=== PATIENT | female | born 1995 | race Caucasian/White ===

== ENCOUNTER 2025-05-09 15:33 | Emergency (ER) | payer MEDICAID, SELFPAY ==
[2025-05-09 15:43] VITALS: BP 144/98; PULSE 107; RESP 20; TEMP 36.6; O2SAT 98
--- NOTE | 2025-05-09 15:47 | XR_ITS ---
Examination: Pelvic ultrasound, transabdominal, complete Technique: Transabdominal ultrasound of the pelvis performed using grayscale imaging Date and time of exam: May 09, 2025, 1641 hrs. Indications: Severe pelvic pain today, CT examination today bowel loop versus anterior left pelvic mass Findings: Uterus 11.3 cm endometrial stripe 1.2 cm No bladder mass or intrauterine gestation. Right ovary 3.6 cm arterial flow. Left ovary 3.7 cm arterial flow Solid mass adjacent to the left ovary 2.5 x 1.8 x 2.7 cm Also left ovarian cyst 2.8 x 1.6 x 2.5 cm Impression: Solid left adnexal mass is confirmed, 2.5 x 1.8 x 2.7 cm, differential would include ovarian tumor. Recommend elective MRI pelvis follow-up pre and postcontrast
--- NOTE | 2025-05-09 15:47 | XR_ITS ---
Examination: CT abdomen and pelvis without contrast. Coronal 3-D reconstructions. Sagittal 2-D reconstructions. Date and time of exam:May 09, 2025, 1557 hrs. Indications: Lower abdominal pain and nausea beginning today. Comparison: October 20, 2013. CTDI: vol (mGy): 13.8. DLP: (mGycm): 809. Technique: Axial images of the abdomen have been obtained, 3 mm slice thickness Intravenous contrast material has not been administered. Low dose protocols were performed. One or more of the following dose reduction techniques were used; automated exposure control, adjustment of the mA and/or KV according to patient size, use of iterative reconstruction technique. Findings: Mild enlargement cardiac contour with small pericardial effusion. Fatty liver. Contracted gallbladder. No pancreatic mass No renal or ureteral calculi, no hydronephrosis Aorta normal size No pericecal inflammatory change Anteverted uterus. Bowel loop versus anterior left pelvic mass, 34 mm on this noncontrast study, axial image 180 Urinary bladder intact The osseous structures are intact Impression: Negative for pancreatitis No renal or ureteral calculi. No CT findings of appendicitis or bowel obstruction. Recommend pelvic sonography to exclude left adnexal pelvic mass
--- NOTE | 2025-05-09 15:48 | PD.EDRME ---
Rapid Medical Screening Exam RME Arrival date/time: 05/09/25 15:33 29-year-old female presents to the emergency department today for complaints of pelvic pain and abdominal pain Chief Complaint: Abdominal Pain Vital signs: Vital Signs Temperature 98 F 05/09/25 15:43 Pulse Rate 107 H 05/09/25 15:43 Respiratory Rate 20 05/09/25 15:43 Blood Pressure 144/98 H 05/09/25 15:43 Pulse Oximetry (%) 98 05/09/25 15:43 Oxygen Delivery Method Room Air 05/09/25 15:43
[2025-05-09] MEDS: KETOROLAC INJ 30 MG/ML VIAL IM (15:53)
[2025-05-09 16:15] LABS: Basophils # (Auto) 0.0 Thou/mm3 (0.0-0.2); Basophils % (Auto) 0 % (0-2.5); Eosinophils # (Auto) 0.3 Thou/mm3 (0.0-0.5); Eosinophils % (Auto) 2 % (0-10); Hematocrit 38.4 % (36.0-46.0); Hemoglobin 12.4 g/dL (12.0-16.0); Immature Granulocytes Auto 0.03 Thou/mm3 (0.00-0.00); Lymphocytes # (Auto) 3.1 Thou/mm3 (1.0-4.8); Lymphocytes % (Auto) 24 % (10-50); Mean Corpuscular HGB Conc 32.3 g/dl (31.0-37.0); Mean Corpuscular Hemoglobin 24.9 pg (25.0-35.0); Mean Corpuscular Volume 77 fL (80-100); Monocytes # (Auto) 0.8 Thou/mm3 (0.0-0.8); Monocytes % (Auto) 7 % (0-12); Neutrophils # (Auto) 8.6 Thou/mm3 (1.8-7.7); Neutrophils % (Auto) 67 % (37-80); Nucleated Red Blood Cell # 0.00 Thou/mm3 (0.00-0.00); Nucleated Red Blood Cell % 0 /100 WBC (0); Platelet Count 368 Thou/mm3 (140-440); RDW Standard Deviation 45.0 fL (36.4-46.3); Red Blood Count 4.97 Miln/mm3 (4.00-5.20); White Blood Count 12.8 Thou/mm3 (3.6-11.0)
[2025-05-09 16:51] LABS: Alanine Aminotransferase 10 U/L (10-49); Albumin, Serum 4.7 gm/dL (3.5-5.0); Albumin/Globulin Ratio 1.5 (1.2-2.2); Alkaline Phosphatase 102 U/L (46-116); Anion Gap 10 (7-16); Aspartate Amino Transferase 16 U/L (0-34); BUN/Creatinine Ratio 25 Ratio (12-20); Bilirubin,Total 0.4 mg/dL (0.3-1.2); Blood Urea Nitrogen 20 mg/dL (9-23); Calcium 10.1 mg/dL (8.3-10.6); Calcium (Corrected) 10.1 mg/dL (8.5-10.1); Carbon Dioxide 25.1 mMol/L (20.0-31.0); Chloride 106 mMol/L (98-107); Creatinine (Component) 0.8 mg/dL (0.6-1.3); Globulin 3.1 gm/dL (2.3-3.5); Glucose 112 mg/dL (74-106); Lipase 22 U/L (12-53); Osmolality,Calculated 284 (275-295); Potassium 3.4 mMol/L (3.4-5.1); Sodium 141 mMol/L (136-145); Total Protein 7.8 gm/dL (5.7-8.2); eGFR > 60 See Note
[2025-05-09 17:40] LABS: Collection Type, Urine Clean Catch
[2025-05-09 18:06] LABS: Bacteria,Urine Rare; Bilirubin,Urine Negative (Negative); Blood,Urine 1+ (Negative); Clarity,Urine Turbid (Clear/Hazy); Color,Urine Yellow (Lt Yel-Yel); Glucose, Urine Negative (Negative); Ketones,Urine Negative (Negative); Leukocyte Esterase,Urine Positive (Negative); Nitrite,Urine Positive (Negative); PH,Urine 6.0 (5.0-7.0); Protein,Urine Trace (Neg - Trace); RBC,Urine 22 /hpf (0-3); Specific Gravity,Urine 1.027 (1.001-1.035); Squamous Epithelial Cell,Urine 1 /hpf (0-5); Urobilinogen,Urine Negative mg/dL (0.0-1.0); WBC,Urine 328 /hpf (0-5)
[2025-05-09 18:07] LABS: Culture Indicated,Urine Yes
--- NOTE | 2025-05-09 18:30 | PD.EDABDPN ---
ED Abdominal Pain RME/HPI General Chief Complaint: Abdominal Pain Stated complaint: SEVERE ABD/LOWER BACK PAIN X 2 DAYS Time seen by provider: 05/09/25 18:50 Arrival date/time: 05/09/25 15:33 RME / HPI RME / HPI narrative: 05/09/25 15:33 29-year-old female presents to the emergency department today for complaints of pelvic pain and abdominal pain Dr. Man?s Main ED Evaluation: 29yo female coming in with gradually increasing LLQ pain x 3 days described as tightness/cramping in nature. Also notes urinary frequency, but no urgency, dysuria, or hematuria. No fever or chills. Pain increases with valsalva. PMH includes childhood asthma. PSH includes tubal litigation and . Related Data Previous Rx's ?Medication ?Instructions ?Recorded cefdinir 300 mg capsule 300 mg PO BID 7 days #14 caps 05/09/25 naproxen 250 mg tablet 250 mg PO BID PRN pain #10 tabs 05/09/25 oxycodone-acetaminophen 5 mg-325 1 tab PO Q8H PRN pain #21 tabs 05/09/25 mg tablet (Percocet) promethazine 12.5 mg tablet 12.5 mg PO TID PRN nausea and 05/09/25 vomiting #14 tabs Allergies Allergy/AdvReac Type Severity Reaction Status Date / Time No Known Allergies Allergy Verified 05/09/25 15:36 Review of Systems Review of Systems Systems Reviewed: All systems reviewed, normal except as documented Past Medical History Past Medical History NEUROLOGIC: Positive Seizures (in e.r. this admission); Negative Neurological Disorders CARDIAC: Negative Cardiac Disorders, Myocardial Infarction, Cardiac Arrhythmia, Atrial Fibrillation, Angina, Heart Murmur, Coronary Artery Disease, Atherosclerotic Heart Disease, Peripheral Vascular Disease, Hypercholesterolemia, Aneurysm, Congestive Heart Failure, Congenital Heart Disease, Valvular Heart Disease, Rheumatic Fever, Cardiomyopathy, Edema, Pericarditis, Cellulitis, Deep Vein Thrombosis, Hypertension, Hypotension or Varicose Veins RESPIRATORY: Positive Asthma (INH LAST USED 6 MONTHS AGO); Negative Chronic Obstructive Pulmonary Disease (COPD) GASTROINTESTINAL: Negative Gastrointestinal Disorders, Hepatitis or Colorectal Cancer GENITOURINARY: Negative Genitourinary Disorders, Renal Disease or Prostate Cancer REPRODUCTIVE: Positive Previous Pregnancies; Negative Breast Cancer, Endometriosis, Genital Herpes, Gonorrhea, Pelvic Inflammatory Disease, Syphilis, Testicular Cancer or Uterine Prolapse MUSCULOSKELETAL: Positive Musculoskeletal Disorders (PSORIOSIS); Negative Bone Cancer or Carpal Tunnel Syndrome ENT: Negative Cataracts ENDOCRINE: Negative Endocrine Disorders, Diabetes Mellitus Type 1 or Diabetes Mellitus Type 2 HEMATOLOGIC: Negative Blood Disorders, Anemia, Leukemia, Hemophilia, Thalassemia, Sickle Cell Disease or Clotting Problems OTHER HISTORY: Positive Hospitalization (CHILDBIRTH, DUE TO COVID RELATED SYMPTOMS 2019); Negative Autoimmune Disease, Down Syndrome, Developmental Delay, Shingles, Falls, Blood Transfusions, Anesthesia Reactions, Organ Transplant, Chemotherapy, Radiation Therapy, Hyperbaric Therapy, MRSA, VRSA, Vancomycin-Resistant Enterococci, Human Immunodeficiency Virus (HIV), Chicken Pox, Measles, Mumps, Rubella (Czech Measles), Pertussis, Clostridium Difficile, Cancer, Breast Cancer, Cervical Cancer, Colorectal Cancer, Lung Cancer, Ovarian Cancer, Prostate Cancer or Testicular Cancer Family History FAMILY HISTORY: Positive Family Respiratory Disorders (MATERNAL GF-ASTHMA.), Family Cardiac Disorders (MATERNAL GRANDMOTHER-CHF.), Family Gastrointestinal Problems (MATERNAL GF-ULCERS.), Family Cancer (MATERNAL AUNT-COLON CA.) and Family Surgery (SISTER-APPENDECTOMY, MOTHER-C/S,); Negative Family Psychiatric Problems or Family Anesthesia Reaction Surgical History SURGICAL: Positive Ear Surgery, Tonsillectomy and Section (3); Negative Cardiac Surgery, Open Heart Surgery, Coronary Artery Bypass Graft, Valve Replacement, Vascular Surgery, Coronary Stent, Cardiac Catheterization, Pacemaker, Angiogram, Auto Implanted Cardiovert Defib, Carotid Endarterectomy, Endocrine Surgery, Thyroidectomy, Tympanostomy Tube, Eye Surgery, Nose Surgery, Oral Surgery, Adenoidectomy, Cochlear Implant, Corneal Transplant, Throat Surgery, Abdominal Surgery, Tracheostomy, Gastric Bypass Surgery, Gastrostomy, Bowel Surgery, Nephrectomy, Transurethral Resection, Joint Replacement, Amputation, Open Reduction Internal Fixation, Arthroscopy, Neurologic Surgery, Brain Shunt, Mastectomy, Lumpectomy, Hysterectomy, Tubal Ligation or Organ Transplant Social History SMOKING STATUS: Current every day smoker SECOND HAND EXPOSURE: No ED Exam Narrative Physical exam: GENERAL APPEARANCE: alert and oriented x 4, well-developed, well-nourished, occasionally tearful secondary to LLQ pain, obese, no acute distress VITALS: All vitals were reviewed and the pulse ox is 98% on room air, which is normal according to my interpretation. HEENT: Normocephalic, atraumatic; pupils equal, round, reactive to light; EOMI; mucous membranes pink, moist; oropharynx clear NECK: Supple LUNGS: CTABL; no wheezes, no rales, no rhonchi HEART: Regular rate, regular rhythm; normal S1, S2; no murmurs ABDOMEN: non distended; soft, localized LLQ tenderness, equivocal peritoneal findings BACK: no CVA tenderness EXTREMITIES: atraumatic; no edema NEUROLOGIC: awake; alert and oriented x4; cranial nerves II-XII grossly intact; no focal sensory or motor deficits PSYCHIATRIC: appropriate mood and affect SKIN: warm, dry, normal color; no rashes Course Quality Measures none Orders Category Date Time Status CT abdomen pelvis wo con Stat Exams 05/09/25 15:47 Completed US pelvic complete Stat Exams 05/09/25 15:47 Completed CBC Stat Lab 05/09/25 16:08 Completed Comprehensive Metabolic Panel Stat Lab 05/09/25 16:08 Completed HCG Qualitative,Urine Stat Lab 05/09/25 17:00 Completed Lipase Stat Lab 05/09/25 16:08 Completed UA, C/S IF [Urinalysis, C/S if Indicated] Stat Lab 05/09/25 17:00 Completed Urine Culture Stat Lab 05/09/25 17:00 Received HYDROcodone*/APAP 5/325 [Star 5/325] Med 05/09/25 18:54 Discontinued 1 tab PO X1 ONE Ibuprofen Tab [Motrin Tab] Med 05/09/25 18:54 Discontinued 600 mg PO X1 ONE Ketorolac Inj [Toradol Inj] Med 05/09/25 15:47 Discontinued 30 mg IM X1 ONE cefTRIAXone [Rocephin] Med 05/09/25 18:58 Discontinued 1,000 mg IM X1 ONE Vital Signs Vital signs: Vital Signs Temperature 98 F 05/09/25 15:43 Pulse Rate 107 H 05/09/25 15:43 Respiratory Rate 20 05/09/25 15:43 Blood Pressure 144/98 H 05/09/25 15:43 Pulse Oximetry (%) 98 05/09/25 15:43 Oxygen Delivery Method Room Air 05/09/25 15:43 Abdominal Pain MDM MDM Narrative MDM Narrative:: Scribe Attestation: 05/09/25 - Isa Ty am scribing for and in the presence of Dr. Man. 29yo female coming in with gradually increasing LLQ pain x 3 days described as tightness/cramping in nature. Also notes urinary frequency, but no urgency, dysuria, or hematuria. Please see PE findings. Lab markers demonstrate marginally elevated WBC count, no bandemia. Chemistries unremarkable. UA demonstrates UTI. Patient received Rocephin 1g IM and oral narcotic analgesics with [id number] relied. CT and US performed, which demonstrated left ovarian cystic structure with adjacent mass, no gross free fluid in the pelvis. After extended period of observation, patient is considered stable for discharge. Recommended close follow-up with her PMD for referral to gynecology as an outpatient. Patient data External records reviewed:: [facility] previous records (Per chart review, patient was admitted here on 09/02/20 for abdominal pain.) Clinical information provided by:: patient Social determinants that could affect healthcare access:: none Patient has the following chronic illnesses:: asthma How is presenting disease/condition affected by chronic disease/condition?: uneffected by Evaluation data The following diagnostics were reviewed and interpreted by me:: lab results and radiology exam(s) Lab and/or radiology exams considered but not ordered:: none Interpretation Summary: [facility] Report Signed Patient: EFRAIN ABKER Record#: [id number] Birthdate: 1995 Age/Sex: 29 / F Location: [facility] Attending Dr: Ordering Physician: Catrina CLAYTON)Mike NP Date of Service: 05/09/25 Procedure(s): US pelvic complete Accession Number(s): [id number] cc: Catrina CLAYTON)Mike NP; Derek Morris MD; Ewa Aparicio PA-C~ Examination: Pelvic ultrasound, transabdominal, complete Technique: Transabdominal ultrasound of the pelvis performed using grayscale imaging Date and time of exam: May 09, 2025, 1641 hrs. Indications: Severe pelvic pain today, CT examination today bowel loop versus anterior left pelvic mass Findings: Uterus 11.3 cm endometrial stripe 1.2 cm No bladder mass or intrauterine gestation. Right ovary 3.6 cm arterial flow. Left ovary 3.7 cm arterial flow Solid mass adjacent to the left ovary 2.5 x 1.8 x 2.7 cm Also left ovarian cyst 2.8 x 1.6 x 2.5 cm Impression: Solid left adnexal mass is confirmed, 2.5 x 1.8 x 2.7 cm, differential would include ovarian tumor. Recommend elective MRI pelvis follow-up pre and postcontrast Dictated By: Derek Morris MD Signed By: <Electronically signed by Derek Morris MD in [place]> 05/09/25 1721 [facility] Signed Patient: EFRAIN BAKER Record#: [id number] Birthdate: 1995 Age/Sex: 29 / F Location: [facility] Attending Dr: Ordering Physician: Catrina CLAYTON),Mike IQBAL Date of Service: 05/09/25 Procedure(s): CT abdomen pelvis wo con Accession Number(s): [id number] cc: Catrina CLAYTON),Mike IQBAL; Derek Morris MD~ Examination: CT abdomen and pelvis without contrast. Coronal 3-D reconstructions. Sagittal 2-D reconstructions. Date and time of exam:May 09, 2025, 1557 hrs. Indications: Lower abdominal pain and nausea beginning today. Comparison: October 20, 2013. CTDI: vol (mGy): 13.8. DLP: (mGycm): 809. Technique: Axial images of the abdomen have been obtained, 3 mm slice thickness Intravenous contrast material has not been administered. Low dose protocols were performed. One or more of the following dose reduction techniques were used; automated exposure control, adjustment of the mA and/or KV according to patient size, use of iterative reconstruction technique. Findings: Mild enlargement cardiac contour with small pericardial effusion. Fatty liver. Contracted gallbladder. No pancreatic mass No renal or ureteral calculi, no hydronephrosis Aorta normal size No pericecal inflammatory change Anteverted uterus. Bowel loop versus anterior left pelvic mass, 34 mm on this noncontrast study, axial image 180 Urinary bladder intact The osseous structures are intact Impression: Negative for pancreatitis No renal or ureteral calculi. No CT findings of appendicitis or bowel obstruction. Recommend pelvic sonography to exclude left adnexal pelvic mass Dictated By: Derek Morris MD Signed By: <Electronically signed by Derek Morris MD in OV> 05/09/25 1629 Medications / Prescriptions Medications or Prescriptions considered but not ordered:: none Medication administrations:: Medication Administration History Discontinued Medications Hydrocodone Bitart/Acetaminophen (Hydrocodone/Apap 5/325 Tablet) 1 tab PO X1 ONE Stop: 05/09/25 18:55 Last Admin: 05/09/25 19:24 Dose: 1 tab Documented By: OA Ceftriaxone Sodium (Ceftriaxone Sod Inj 1,000 Mg Vial) 1,000 mg IM X1 ONE Stop: 05/09/25 18:59 Last Admin: 05/09/25 19:26 Dose: 1,000 mg Documented By: OA Ibuprofen (Ibuprofen Tab 600 Mg Tablet) 600 mg PO X1 ONE Stop: 05/09/25 18:55 Last Admin: 05/09/25 19:24 Dose: 600 mg Documented By: OA Ketorolac Tromethamine (Ketorolac Inj 30 Mg/Ml Vial) 30 mg IM X1 ONE Stop: 05/09/25 15:48 Last Admin: 05/09/25 15:53 Dose: 30 mg Documented By: OA see above Consultations Consultation(s) initiated? (list below): No Diagnosis Differential diagnosis abdominal pain: constipation and other (ovarian cyst, ovarian torsion, pelvis mass) Most likely diagnosis given after review of the tests above:: see clinical impression below Admission Indicated Admission indicated?: not indicated Admission Request Was there a request for admission?: No Disposition Plan Disposition Plan: Discharge Discharge Attestation Discharge Attestation: The patient and all family members were given an opportunity to ask questions and understood the discharge instructions. Discharge instructions specifically effects, indications for sooner follow up or return to the emergency department, and the expected course of current diagnosis. Patient condition: Stable Discharge Plan Plan Patient Disposition: HOME (Self Care) Discharge Disposition comment: Stablestable Prescriptions/Referrals Prescriptions/Med Rec: New cefdinir 300 mg capsule 300 mg PO BID 7 Days Qty: 14 0RF oxycodone-acetaminophen [Percocet] 5-325 mg tablet 1 tab PO Q8H MDD 3 tab PRN (Reason: pain) Qty: 21 0RF promethazine 12.5 mg tablet 12.5 mg PO TID PRN (Reason: nausea and vomiting) Qty: 14 0RF naproxen 250 mg tablet 250 mg PO BID PRN (Reason: pain) Qty: 10 0RF Referrals: Ewa Aparicio PA-C [Primary Care Provider] - In 1 week Problem List Clinical Impression: UTI (urinary tract infection), Ovarian cyst, Pelvic mass Patient/Caregiver Discharge Instructions Discharge Activity: activity as tolerated Diet Instructions: Tolerated Education Materials: ED Ovarian Cyst, ED CYSTITIS Female Adult Additional Instructions: Medication as directed. Force fluids. Contact your primary care doctor for referral to see [facility] physician as patient will likely require laparoscopy for further evaluation of pelvic mass. Print Language: Tajik Stand Alone Forms: Leslie Award Info., Work/School Release, Patient Portal Info Letter
[2025-05-09 19:14] LABS: HCG Qualitative,Urine Negative
[2025-05-09] MEDS: HYDROcodone/APAP 5/325 TABLET 1 TAB PO (19:24)
[2025-05-09] MEDS: IBUPROFEN TAB 600 MG TABLET PO (19:24)
[2025-05-09] MEDS: cefTRIAXone SOD INJ 1,000 MG VIAL 1000 MG IM (19:26)
== END 2025-05-09 19:54 | disposition home or self-care (01) ==
PROVIDERS: Nurse Practitioner Primary Care; Emergency Provider Emergency Medicine; PCP Physician Assistant
DX: N39.0 Urinary tract infection, site not specified (principal); N83.202 Unspecified ovarian cyst, left side; R19.09 Other intra-abdominal and pelvic swelling, mass and lump
CPT/HCPCS: 36415; 74176; 76856; 80053; 81001; 81025; 83690; 85025; 87077; 87086; 87186; 96372; 99284; J0696; J1885; A9270